=== PATIENT | female | born 1970 | race Caucasian/White ===

== ENCOUNTER 2018-01-13 15:55 | Emergency (ER) | payer BC ==
[~2018-01-13] VITALS: Ht 165.1 cm; Wt 106.6 kg
[2018-01-13] MEDS ORDERED: SODIUM CHLORIDE FLUSH 10ML SYR IVF ONE ×2 (16:30→17:00)
[2018-01-13 16:48] LABS: BASOPHILS # (AUTO) 0.03 x10^3/uL (0-0.1); BASOPHILS % (AUTO) 0 % (0-1); EOSINOPHILS # (AUTO) 0.06 x10^3/uL (0-0.4); EOSINOPHILS % (AUTO) 1 % (1-7); LYMPHOCYTES # (AUTO) 1.71 x10^3/uL (1-3.4); LYMPHOCYTES % (AUTO) 20 % (22-44); MD NO; MEAN CORPUSCULAR HEMOGLOBIN 28.6 pg (27.0-34.8); MEAN CORPUSCULAR HGB CONC 33.3 g/dL (32.4-35.8); MEAN CORPUSCULAR VOLUME 85.9 fL (80-100); MEAN PLATELET VOLUME 7.8 fL (7.4-10.4); MONOCYTES # (AUTO) 0.73 x10^3/uL (0.2-0.8); MONOCYTES % (AUTO) 9 % (2-9); NEUTROPHILS # (AUTO) 6.03 x10^3/uL (1.8-6.8); NEUTROPHILS % (AUTO) 71 % (42-75); PLATELET COUNT 330 x10^3/uL (130-400); RED BLOOD COUNT 4.97 x10^6/uL (3.82-5.3); RED CELL DISTRIBUTION WIDTH 14.1 % (9.6-15.2)
[2018-01-13] MEDS ORDERED: ONDANSETRON 2MG/ML, 2ML ONE (16:52)
[2018-01-13] MEDS ORDERED: MORPHINE SULFATE 4 MG/ML, 1ML ONE ×2 (16:52→18:55)
[2018-01-13] MEDS: MORPHINE SULFATE 4 MG/ML, 1ML IVPush PRN ×2 (16:56→19:01)
[2018-01-13 17:00] LABS: ALANINE AMINOTRANSFERASE 24 U/L (12-78); ALBUMIN 3.4 g/dL (3.4-5.0); ANION GAP 8 mmol/L (5-15); CALCIUM 8.5 mg/dL (8.5-10.1); CHLORIDE 106 mmol/L (98-107)
[2018-01-13] MEDS ORDERED: SODIUM CHLORIDE 0.9% 1,000ML IVBOLUS ONE (17:00)
[2018-01-13] MEDS ORDERED: PLEASE ENTER ALLERGIES MC SCH (17:00)
[2018-01-13] MEDS ORDERED: ONDANSETRON 2MG/ML, 2ML IVPush ONE (17:00)
[2018-01-13 17:04] LABS: ALKALINE PHOSPHATASE 95 U/L (45-117); BILIRUBIN,TOTAL 0.4 mg/dL (0.2-1.0); TOTAL PROTEIN 8.1 g/dL (6.4-8.2)
[2018-01-13 17:06] LABS: TROPONIN I < 0.015 ng/mL (0.000-0.045)
[2018-01-13] MEDS ORDERED: KETOROLAC 30 MG/1 ML IVPush ONE (19:00)
[2018-01-13] MEDS ORDERED: KETOROLAC 30 MG/1 ML ONE (19:02)
[2018-01-13 19:24] LABS: MICROSCOPIC AUTO
[2018-01-13 19:25] LABS: CULTURE INDICATED? NO
[2018-01-13 20:19] VITALS: BP 180/90
== END 2018-01-13 20:55 | disposition home or self-care (01) ==
LOC: ED 19:39
DX: N13.2 Hydronephrosis with renal and ureteral calculous obstruction (principal); R33.9 Retention of urine, unspecified; R31.9 Hematuria, unspecified; Z98.51 Tubal ligation status
CPT/HCPCS: 36415; 51702; 71045; 74176; 80053; 81001; 83690; 83880; 84484; 85025; 93005; 96361; 96374; 96375; 96376; 99285; J1885; J2405; J7030